=== PATIENT | male | born 1965 | race Caucasian/White ===

== ENCOUNTER 2017-03-09 17:26 | Emergency (ER) | payer BC ==
[~2017-03-09] VITALS: Ht 170.2 cm; Wt 70.3 kg
[2017-03-09] MEDS ORDERED: Dicyclomine HCl 10mg/5ml oral soln ORAL ONE (18:15)
[2017-03-09] MEDS ORDERED: Lidocaine 2% Visc 15ml soln ORAL ONE (18:15)
[2017-03-09] MEDS ORDERED: Mylanta II UD 30ml ORAL ONE (18:15)
[2017-03-09 19:03] LABS: EOSINOPHILS % (AUTO) 0.5 % (0.0-3.0); LYMPHOCYTES % (AUTO) 36.8 % (20.0-45.0); MEAN CORPUSCULAR HEMOGLOBIN 31.3 PG (27.0-31.0); MEAN CORPUSCULAR HGB CONC 32.6 G/DL (32.0-36.0); MEAN CORPUSCULAR VOLUME 96 FL (80-99); MONOCYTES % (AUTO) 6.5 % (1.0-10.0); NEUTROPHILS % (AUTO) 55.2 % (45.0-75.0); PLATELET COUNT 336 K/UL (150-450); RED BLOOD COUNT 4.14 M/UL (4.70-6.10); RED CELL DISTRIBUTION WIDTH 11.4 % (11.6-14.8); WHITE BLOOD COUNT 7.6 K/UL (4.8-10.8)
[2017-03-09 19:13] LABS: APPEARANCE,URINE CLEAR; KETONES,URINE NEGATIVE (NEGATIVE); LEUKOCYTE ESTERASE ,URINE NEGATIVE (NEGATIVE); NITRITE,URINE NEGATIVE (NEGATIVE); PH,URINE 7 (4.5-8.0); PROTEIN,URINE NEGATIVE (NEGATIVE); UROBILINOGEN,URINE NORMAL MG/DL (0.0-1.0)
[2017-03-09 19:18] VITALS: BP 121/78
[2017-03-09 19:25] LABS: ALANINE AMINOTRANSFERASE 30 U/L (12-78); ALBUMIN/GLOBULIN RATIO 1.6 (1.0-2.7); ANION GAP 7 mmol/L (5-15); ASPARTATE AMINO TRANSFERASE 23 U/L (15-37); CALCIUM 9.6 MG/DL (8.5-10.1); CARBON DIOXIDE 29 MMOL/L (21-32); CHLORIDE 102 MMOL/L (98-107); CREATININE 0.9 MG/DL (0.55-1.30); GLOMERULAR FILTRATION RATE > 60 mL/min (>60); LIPASE 112 U/L (73-393); SODIUM 138 MMOL/L (136-145); TOTAL PROTEIN 7.2 G/DL (6.4-8.2)
[2017-03-09 19:58] LABS: BILIRUBIN,DIRECT 0.2 MG/DL (0.0-0.3)
[2017-03-09] MEDS ORDERED: MYLANTA30 M1 PO (20:00)
[2017-03-09] MEDS ORDERED: BENTYL10 MG ORAL (20:00)
[2017-03-09 20:08] VITALS: BP 132/80
--- NOTE | 2017-03-09 23:56 | Emergency Room Report ---
History of Present Illness General Chief Complaint: Abdominal Pain Source: Patient Present Illness HPI The patient is a 51-year-old male presenting for abdominal pain. Patient states has a history of GERD with hiatal hernia. Pain is described as a 9/10 burning to the mid-upper abdomen in the mid chest. It has been progressing over the past week. He has been taking omeprazole daily as well as Zantac which usually helps but has not been helping. He went to go see his primary doctor today who told the patient to come to the emergency department for evaluation. The patient states he last had endoscopy approximately 5 years prior. He denies any other symptoms including nausea, vomiting, fever, chills, diarrhea Allergies: Coded Allergies: ASPIRIN (Verified Allergy, Unknown, 03/09/17) PENICILLINS (Verified Allergy, Unknown, 03/09/17) Patient History Past Medical History: see triage record, GERD Pertinent Family History: none Reviewed Nursing Documentation: PMH: Agreed, PSxH: Agreed Review of Systems All Other Systems: negative except mentioned in HPI Physical Exam Vital Signs Date Time Temp Pulse Resp B/P (MAP) Pulse Ox O2 Delivery O2 Flow Rate FiO2 03/09/17 17:33 97.9 74 16 121/78 95 Room Air Sp02 EP Interpretation: reviewed, normal General Appearance: no apparent distress, alert, GCS 15, non-toxic Head: normocephalic, atraumatic Eyes: bilateral eye normal inspection, bilateral eye PERRL ENT: hearing grossly normal, normal pharynx, no angioedema, normal voice Respiratory: chest non-tender, lungs clear, normal breath sounds, speaking full sentences Cardiovascular #1: regular rate, rhythm, no edema Gastrointestinal: normal bowel sounds, non tender, soft, no mass, non-distended , no guarding, no rebound Genitourinary: normal inspection, no CVA tenderness Musculoskeletal: back normal, gait/station normal, normal range of motion, non- tender Neurologic: alert, oriented x3, responsive, motor strength/tone normal, sensory intact, speech normal Psychiatric: judgement/insight normal, memory normal, mood/affect normal, no suicidal/homicidal ideation Skin: normal color, no rash, warm/dry, well hydrated Medical Decision Making PA Attestation Dr. Mclaughlin is my supervising physician. Patient management was discussed with my supervising physician Diagnostic Impression: Primary Impression: GERD (gastroesophageal reflux disease) Qualified Codes: K21.9 - Gastro-esophageal reflux disease without esophagitis ER Course The patient is a 51 yo M with a Hx of GERD presenting for abd pain. Differential diagnoses considered but not limited to: GERD, gastritis, gastric ulcer, gastroenteritis, pancreatitis, among others Physical exam: Vitals within normal limits. No apparent distress RRR. Lungs are clear to auscultation bilaterally. No chest tenderness. Abdomen is soft. Non tender. Normal bowel sounds. Nondistended. No CVA tenderness The patient is given a GI cocktail and feels significantly better. He is TX'ed home and will be treated for GERD. he was told he needs to FU with PMD and GI. He may need endoscopy as discussed. ER precautions given Laboratory Tests Test 03/09/17 18:30 03/09/17 18:40 White Blood Count 7.6 K/UL (4.8-10.8) Red Blood Count 4.14 M/UL (4.70-6.10) L Hemoglobin 13.0 G/DL (14.2-18.0) L Hematocrit 39.7 % (42.0-52.0) L Mean Corpuscular Volume 96 FL (80-99) Mean Corpuscular Hemoglobin 31.3 PG (27.0-31.0) H Mean Corpuscular Hemoglobin Concent 32.6 G/DL (32.0-36.0) Red Cell Distribution Width 11.4 % (11.6-14.8) L Platelet Count 336 K/UL (150-450) Mean Platelet Volume 6.0 FL (6.5-10.1) L Neutrophils (%) (Auto) 55.2 % (45.0-75.0) Lymphocytes (%) (Auto) 36.8 % (20.0-45.0) Monocytes (%) (Auto) 6.5 % (1.0-10.0) Eosinophils (%) (Auto) 0.5 % (0.0-3.0) Basophils (%) (Auto) 1.0 % (0.0-2.0) Sodium Level 138 MMOL/L (136-145) Potassium Level 4.0 MMOL/L (3.5-5.1) Chloride Level 102 MMOL/L (98-107) Carbon Dioxide Level 29 MMOL/L (21-32) Anion Gap 7 mmol/L (5-15) Blood Urea Nitrogen 10 mg/dL (7-18) Creatinine 0.9 MG/DL (0.55-1.30) Estimate Glomerular Filtration Rate > 60 mL/min (>60) Glucose Level 88 MG/DL (74-106) Calcium Level 9.6 MG/DL (8.5-10.1) Total Bilirubin 1.2 MG/DL (0.2-1.0) H Direct Bilirubin 0.2 MG/DL (0.0-0.3) Aspartate Amino Transferase (AST) 23 U/L (15-37) Alanine Aminotransferase (ALT) 30 U/L (12-78) Alkaline Phosphatase 56 U/L (46-116) Total Protein 7.2 G/DL (6.4-8.2) Albumin 4.4 G/DL (3.4-5.0) Globulin 2.8 g/dL Albumin/Globulin Ratio 1.6 (1.0-2.7) Lipase 112 U/L (73-393) Urine Color Pale yellow Urine Appearance Clear Urine pH 7 (4.5-8.0) Urine Specific Harrells 1.005 (1.005-1.035) Urine Protein Negative (NEGATIVE) Urine Glucose (UA) Negative (NEGATIVE) Urine Ketones Negative (NEGATIVE) Urine Occult Blood Negative (NEGATIVE) Urine Nitrite Negative (NEGATIVE) Urine Bilirubin Negative (NEGATIVE) Urine Urobilinogen Normal MG/DL (0.0-1.0) Urine Leukocyte Esterase Negative (NEGATIVE) Lab Results Impression Unremarkable Chest X-Ray Diagnostic Results Chest X-Ray Diagnostic Results : Chest X-Ray Ordered: Yes # of Views/Limited/Complete: 1 View Indication: Chest Pain EP Interpretation: Yes Interpretation: no consolidation, no effusion, no pneumothorax, no acute cardiopulmonary disease Impression: No acute disease Electronically Signed by: GERTRUDE Xiong Scribnicky Text I have reviewed the CXR with my SP. No acute findings. No Free air Last Vital Signs Date Time Temp Pulse Resp B/P (MAP) Pulse Ox O2 Delivery O2 Flow Rate FiO2 03/09/17 20:08 97.9 75 18 132/80 100 Room Air Status: improved Disposition: HOME, SELF-CARE Condition: Improved Scripts Dicyclomine Hcl* (BENTYL*) 10 Mg Capsule 10 MG ORAL Q6HR, #20 CAP Prov: CHRIS MCLAUGHLIN 03/09/17 Al Hydroxide/mg Hydroxide (Mag-Al Liquid) 30 Ml Oral.susp 30 ML PO Q6HR, #200 ML Prov: CHRIS MCLAUGHLIN 03/09/17 Patient Instructions: Gastritis, Adult, Gastroesophageal Reflux Disease, Adult Additional Instructions: I discussed my findings with the patient. All questions and concerns have been answered. Treatment and medication compliance have been addressed. I advised the [facility] Return to ED if symptoms worsen, new symptoms arise, or if needed for any reason. Patient verbalized understanding of discharge instructions. Please follow up with boat painter as discussed CHRIS MCLAUGHLIN Mar 09, 2017 23:56
--- NOTE | 2017-03-10 12:55 | Diagnostic Imaging Report ---
Indication: Dyspnea Comparison: None A single view chest radiograph was obtained. Findings: Cardiomediastinal appearance is within normal limits for age. Pulmonary vascularity is appropriate. The diaphragmatic contour is smooth and costophrenic angles are sharp. No pleural effusions are identified. The bones are unremarkable. Impression: No acute findings
== END 2017-03-09 20:10 | disposition home or self-care (01) ==
LOC: EMR 18:18
DX: K21.9 Gastro-esophageal reflux disease without esophagitis (principal); Z88.0 Allergy status to penicillin; Z88.6 Allergy status to analgesic agent
CPT/HCPCS: 36415; 71010; 80053; 81003; 82248; 83690; 85025; 99284